=== PATIENT | male | born 1950 | race Caucasian/White ===

== ENCOUNTER 2021-10-08 09:19 | Emergency (ER) | payer MEDICAID ==
[~2021-10-08] VITALS: Ht 170.2 cm; Wt 68.0 kg
[2021-10-08 09:20] VITALS: BP 200/114
--- NOTE | 2021-10-08 09:20 | NUR ---
PT W/C ASSIST TO ER BED 10 AND 4 PERSON ASSIST FOR BED TRANSFER.
--- NOTE | 2021-10-08 09:24 | NUR ---
CALLED CT DEPT S/W [facility]LE[facility] FOR CODE BRAIN PER DR. TRUJILLO.
--- NOTE | 2021-10-08 10:00 | NUR ---
PT TAKEN TO ER BED 10 VIA R[facility]ARDRKARLIE.
--- NOTE | 2021-10-08 10:08 | NUR ---
JULIETA COLLECTED, WALKED AND HANDED TO LAB
[2021-10-08] MEDS ORDERED: MORPHINE SULFATE 4 MG/ML SYR IVP ONE (10:20)
[2021-10-08 10:28] LABS: BASOPHILS % (AUTO) 0.6 % (0.0-2.0); EOSINOPHILS # (AUTO) 0.1 K/uL (0-0.4); EOSINOPHILS % (AUTO) 1.5 % (0.0-4.0); HEMATOCRIT 40.4 % (36-52); LYMPHOCYTES # (AUTO) 1.1 K/uL (2.0-11.5); LYMPHOCYTES % (AUTO) 14.3 % (20.5-51.1); MEAN CORPUSCULAR HEMOGLOBIN 31 pg (27-31); MEAN CORPUSCULAR HGB CONC 35 g/dL (33-37); MEAN CORPUSCULAR VOLUME 88.9 fL (80-94); MONOCYTES # (AUTO) 0.4 K/uL (0.8-1.0); MONOCYTES % (AUTO) 5.8 % (1.7-9.3); NEUTROPHILS # (AUTO) 5.9 K/uL (1.8-7.7); NEUTROPHILS % (AUTO) 77.8 % (42.2-75.2); PLATELET COUNT (AUTO) 266 K/uL (140-450); RED BLOOD CELL COUNT(AUTO) 4.55 MIL/uL (4.20-6.10); WHITE BLOOD COUNT (AUTO) 7.6 K/uL (4.8-10.8)
--- NOTE | 2021-10-08 11:30 | NUR ---
PT RESTING IN BED, HOB LOWERED FOR COMFORT, VSS, WILL CONTINUE TO MONITOR.
[2021-10-08 11:40] LABS: ALBUMIN 3.8 g/dL (3.4-5.0); ANION GAP 17.6 (8-16); ASPARTATE AMINOTRANSFERASE 29 U/L (15-37); CARBON DIOXIDE 23.8 mmol/L (21-32); CHLORIDE 102 mmol/L (98-107); CREATININE 0.9 mg/dL (0.6-1.3); GLUCOSE 115 mg/dL (74-106); POTASSIUM 4.4 mmol/L (3.5-5.1); SODIUM SERUM 139 mmol/L (136-145); TOTAL BILIRUBIN 0.6 mg/dL (0.0-1.0); UREA NITROGEN, BLOOD 17 mg/dL (7-18)
--- NOTE | 2021-10-08 12:56 | NUR ---
spoke to Ashvin joiner, meds unknown. Unable to obtain at this time.
[2021-10-08] MEDS ORDERED: ASPIRIN 81 MG TAB.CHEW PO ONE (13:00)
--- NOTE | 2021-10-08 13:46 | NUR ---
[facility] TRANSPORATION AT BEDSIDE
--- NOTE | 2021-10-08 13:47 | NUR ---
ATTEMPTED TO CALL [facility] FOR REPORT, NO ANSWER. WILL ATTEMPT TO CALL AGAIN.
--- NOTE | 2021-10-08 13:49 | NUR ---
TRANSFER CONSENT SIGNED PLACED IN PT CHART.
--- NOTE | 2021-10-08 13:52 | NUR ---
PATIENT MIREYA FISCHER NOTIFIED OF TRANSFER AT THIS TIME
--- NOTE | 2021-10-08 14:04 | NUR ---
REPORT GIVEN TO DORIS CHADWICK AT [facility] . TRANSFER OF CARE.
[2021-10-08 14:14] VITALS: BP 200/106
--- NOTE | 2021-10-08 14:18 | NUR ---
Patient to be transferred to [facility] er. Is being transferred due to Higher level of care. Receiving facility has accepting physician and available space. ER physician has signed transfer form. Patient or responsible alliance party has agreed to transfer and signed form. Patient belongings inventoried and will be sent with patient. Copy of nursing notes, lab reports, EKG, Physicians Orders and X-rays to be sent with patient. Report called to Susan GEORGE at receiving facility. [facility] ambulance service has been called for transfer. ETA is 10 min.
--- NOTE | 2021-10-08 14:20 | NUR ---
The patient's care was reviewed and supervised by Fina Buckley RN.
== END 2021-10-08 14:18 | disposition short-term general hospital (02) ==
LOC: MED 09:19
DX: I63.9 Cerebral infarction, unspecified (principal); Z20.822 Contact with and (suspected) exposure to COVID-19; E11.9 Type 2 diabetes mellitus without complications; I10 Essential (primary) hypertension; F17.290 Nicotine dependence, other tobacco product, uncomplicated
CPT/HCPCS: 36415; 70450; 71045; 80053; 84484; 85025; 85610; 85730; 86886; 86900; 86901; 87426; 93005; 96374; 99285; J2270